=== PATIENT | female | born 1995 | race Caucasian/White ===

== ENCOUNTER → 2019-10-02 09:40 | Outpatient (CLI) | payer OTHER, MEDICAID, SELFPAY ==
--- NOTE | 2019-10-02 | DI.US.S_ITS ---
PROCEDURE: US PELVIC COMPLETE INDICATIONS: BLEEDING X 10 MONTHS TECHNIQUE: Real-time scanning was performed of the pelvic organs, with image documentation. Additional endovaginal scanning was necessary due to incomplete visualization of the adnexal and endometrial structures by transabdominal scanning. COMPARISON: [facility], , PELVIC COMPLETE, 04/26/2017, 12:25. FINDINGS: Transabdominal scanning: Limited scanning through the kidneys shows no hydronephrosis. No pathologic free abdominal or pelvic fluid. Endovaginal scanning: Uterus: Uterus is anteverted and normal in size at 8.4 x 3.4 x 5.1 cm. No uterine mass. The endometrium measures 4 mm in combined thickness. Endometrium appears homogeneous. Ovaries: Within normal limits. Right ovary measures 3.1 x 2.4 x 4.1 cm. Left ovary measures 3.3 x 2.4 x 4.3 cm. IMPRESSION: 1. Endometrium is homogeneous and measures 4 mm. 2. No uterine mass. 3. Ovaries are within normal limit. Dictated by: Mack Flores M.D. on 10/02/2019 at 10:29 Approved by: Mack Flores M.D. on 10/02/2019 at 10:34
== END ==
PROVIDERS: Referring Provider Family Medicine; Visit Provider Family Medicine
DX: N93.9 Abnormal uterine and vaginal bleeding, unspecified (principal)
CPT/HCPCS: 76830; 76856

== ENCOUNTER → 2020-02-27 09:38 | Outpatient (CLI) | payer OTHER, MEDICAID, SELFPAY ==
--- NOTE | 2020-02-27 | DI.US.S_ITS ---
PROCEDURE: US OB <= 14 WEEKS FETUS INDICATIONS: SIZE AND DATES OUTSIDE/PRIOR DATING DATA: Last menstrual period (LMP): January 17, 2020. LMP-based estimated date of delivery (GAL): October 23, 2020 . First dating scan (date and location): February 27, 2020 . Estimated date of delivery (GAL) from first dating scan: October 22, 2020 . TECHNIQUE: Real-time scanning was performed of the fetuses and maternal pelvic organs, with image documentation. Endovaginal scanning: Performed for better visualization of the fetuses and maternal adnexal structures. COMPARISON: None. FINDINGS: General: An intrauterine monochorionic diamniotic twin is present, as evidenced by separate placental sites and/or intervening membrane thickness of greater than 2 mm at this early gestational age. Embryo A: Twin A is noted in the inferior left aspect of the endometrial cavity. The pole and yolk sac are noted. heart rate measured 127 beats per minute. No perigestational hemorrhage. [place]-rump length measured approximately 0.36 cm correlating with approximately 6 weeks and 0 days. Embryo B: Twin B is noted in the superior right margin of the endometrial cavity. A pole and yolk sac are visualized. heart rate measured 113 beats per minute. No perigestational hemorrhage. [place]-rump length measures approximately 0.36 cm correlating with approximately 6 weeks and 0 days gestational age. Measurement variability in dating: +/- 4 weeks by LMP, +/- 7 days by mean sac diameter (use before 6 weeks gestation if crown-rump length unable to be measured), +/- 5 days by crown-rump length (up to 8 weeks 6 days gestation), +/- 7 days by crown-rump length (up to 13 weeks 6 days gestation). Maternal organs: Ovaries are unremarkable with left ovarian corpus luteal cyst measuring approximately 3.0 cm size Limited images through the kidneys demonstrate no hydronephrosis. IMPRESSION: 1. Twin living intrauterine gestations with estimated sonographic gestational age of approximately 6 weeks and 0 days for both twins. 2. Follow-up imaging recommended for routine surveillance. Dictated by: Angel Berg M.D. on 02/27/2020 at 14:48 Approved by: Angel Berg M.D. on 02/27/2020 at 15:00
== END ==
PROVIDERS: PCP Family Medicine; Referring Provider Family Medicine; Visit Provider Family Medicine
DX: Z36.87 Encounter for antenatal screening for uncertain dates (principal); O30.031 Twin pregnancy, monochorionic/diamniotic, first trimester; Z3A.01 Less than 8 weeks gestation of pregnancy
CPT/HCPCS: 76801

== ENCOUNTER → 2020-06-04 09:46 | Outpatient (CLI) | payer OTHER, MEDICAID, SELFPAY ==
--- NOTE | 2020-06-04 | DI.US.S_ITS ---
PROCEDURE: US OB >= 14 WEEKS FETUS INDICATIONS: 20 WEEK ANATOMICAL SURVEY OUTSIDE/PRIOR DATING DATA: Last menstrual period (LMP): 01/17/20. LMP-based estimated date of delivery (GAL): 10/23/20 First dating scan (date and location): 02/27/20 . Estimated date of delivery (GAL) from first dating scan: 10/22/20 . TECHNIQUE: Real-time scanning was performed of the fetuses, with image documentation and biometric measurements. Endovaginal scanning: Not performed COMPARISON: [facility], OB <= 14 WEEKS FETUS, 02/27/2020, 10:05. FINDINGS: General: An intrauterine dichorionic-diamniotic twin is present, as evidenced by separate placentas, differing sexes, or an intervening membrane of greater than 2 mm. Maternal cervical canal: 5.2 cm long. Normal lower limit is 2.5 cm. FETUS A: Fetus is located posterior/inferior, and is in vertex presentation. Largest amniotic fluid pocket: 3.0 cm; normal range is 2-8 cm. Placental position is posterior , without previa. heart rate: 149 beats per minute. biometrics: Biparietal diameter: 4.7 cm, 20 weeks 1 day Head circumference: 17.2 cm, 19 weeks 6 days Abdominal circumference: 14.9 cm, 20 weeks 1 day Femur length: 3.07 cm, 19 weeks 4 days Estimated gestational age from initial scan: 20 weeks 0 days Composite gestational age from present scan: 20 weeks 0 days Estimated weight and percentile: 317 g, 37th percentile Measurement variability for biometric dating: +/- 7 days from 14 weeks to 15 weeks 6 days gestation, +/- 10 days from 16 weeks to 21 weeks 6 days gestation, +/- 2 weeks from 22 weeks to 27 weeks 6 days gestation, +/- 3 weeks for 28 weeks gestation or later. weight reference: 4500 g or EFW >90/95% is considered macrosomia or large for gestational age. EFW <10% is small for gestational age. EFW 5% or less is considered intra-uterine growth restriction. Anatomic survey: Neuro: Ventricles are normal at less than 10 mm. Cisterna magna is normal at 3-11 mm. Cerebellum is normal in size and morphology. Nuchal skin fold: Normal at less than 6 mm between 14 and 21 weeks gestational age. Face: Nose and lips, facial profile are normal. Spine: No evidence for spina bifida. Heart: 4 chambered heart is present, with normal ventricular outflow tracts. Diaphragm: Diaphragm is intact. Stomach: Left-sided stomach is present. Kidneys: No hydronephrosis. Normal ranges are less than 5 mm in 2nd trimester, less than 7 mm in 3rd trimester. Cord: 3 vessel cord has orthotopic insertion. Bladder: Normal in size. Extremities: All 4 extremities are visualized. FETUS B: Fetus is located on right side/fundal, and is in transverse presentation. Largest amniotic fluid pocket: 3.4 cm cm; normal range is 2-8 cm. Placental position is right anterior , without previa. heart rate: 147 beats per minute. biometrics: Biparietal diameter: 4.7 cm, 20 weeks 2 days Head circumference: 17.3 cm, 19 weeks 6 days Abdominal circumference: 15.0 cm, 20 weeks 1 day Femur length: 3.1 cm, 19 weeks 6 days Estimated gestational age from initial scan: 20 weeks 0 days Composite gestational age from present scan: 20 weeks 0 days Estimated weight and percentile: 326 g, 45th percentile Measurement variability for biometric dating: +/- 7 days from 14 weeks to 15 weeks 6 days gestation, +/- 10 days from 16 weeks to 21 weeks 6 days gestation, +/- 2 weeks from 22 weeks to 27 weeks 6 days gestation, +/- 3 weeks for 28 weeks gestation or later. weight reference: 4500 g or EFW >90/95% is considered macrosomia or large for gestational age. EFW <10% is small for gestational age. EFW 5% or less is considered intra-uterine growth restriction. Anatomic survey: Neuro: Ventricles are normal at less than 10 mm. Cisterna magna is normal at 3-11 mm. Cerebellum is normal in size and morphology. Nuchal skin fold: Normal at less than 6 mm between 14 and 21 weeks gestational age. Face: Nose and lips, facial profile are normal. Spine: No evidence for spina bifida. Heart: 4 chambered heart is present, with normal ventricular outflow tracts. Diaphragm: Diaphragm is intact. Stomach: Left-sided stomach is present. Kidneys: No hydronephrosis. Normal ranges are less than 5 mm in 2nd trimester, less than 7 mm in 3rd trimester. Cord: 3 vessel cord has orthotopic insertion. Bladder: Normal in size. Extremities: All 4 extremities are visualized. IMPRESSION: Twin living intrauterine gestation. Fetus A: Vertex presentation. Expected interval growth. Normal anatomic survey. Fetus B: Transverse presentation. Expected interval growth. Normal anatomic survey Dictated by: Estiven Pittman M.D. on 06/04/2020 at 14:13 Approved by: Estiven Pittman M.D. on 06/04/2020 at 14:45
== END ==
PROVIDERS: PCP Family Medicine; Referring Provider Family Medicine; Visit Provider Family Medicine
DX: Z36.89 Encounter for other specified antenatal screening (principal); O30.042 Twin pregnancy, dichorionic/diamniotic, second trimester; Z3A.20 20 weeks gestation of pregnancy
CPT/HCPCS: 76811

== ENCOUNTER 2020-07-30 14:22 | Outpatient (CLI) | payer OTHER, MEDICAID, SELFPAY ==
--- NOTE | 2020-08-03 10:35 | PM.OBTRLD ---
Visit Information Visit Information Date of evaluation: 07/30/20 Primary OB Provider: Belén On-call OB Provider: Krysten Thorne Reason for Evaluation: Yes non-stress test non-stress test reason: decreased movement PFSH Social History Smoking Status: Former smoker Evaluation Evaluation Baseline heart rate: 130 Variability: Average (6-10) monitor accelerations: Present monitor decelerations: Absent Uterine Contraction Intensity: Mild Category of Tracing: Reactive Diagnosis, Plan/Disposition Plan/Disposition Plan: Assessment: 24-year-old 2 para 1 at 28 weeks gestation with dichorionic diamniotic twins Decreased movement Reactive nonstress test x2 Plan: Follow-up with Dr. Melissa as scheduled OB Disposition: home
== END 2020-07-30 15:40 | disposition home or self-care (01) ==
LOC: OB 07-31 07:05
PROVIDERS: PCP Family Medicine; Referring Provider Obstetrics & Gynecology; Visit Provider Obstetrics & Gynecology
DX: O36.8131 Decreased fetal movements, third trimester, fetus 1 (principal); O36.8132 Decreased fetal movements, third trimester, fetus 2; O30.043 Twin pregnancy, dichorionic/diamniotic, third trimester; Z3A.28 28 weeks gestation of pregnancy
CPT/HCPCS: 59025; G0378; G0379

== ENCOUNTER 2020-08-09 18:29 | Outpatient (CLI) | payer OTHER, MEDICAID, SELFPAY ==
[2020-08-09 19:49] LABS: Bacteria Urine None Seen; RBC Urine None Seen (0-5/HPF); WBC Urine None Seen (0-5/HPF)
[2020-08-09 19:51] LABS: Appearance Urine UA CLEAR; Bilirubin Urine UA NEGATIVE (NEGATIVE); Color Urine UA YELLOW; Glucose Urine UA 1+ g/dL (Negative); Ketones Urine UA NEGATIVE (NEGATIVE); Leukocyte Esterase Urine UA NEGATIVE (NEGATIVE); Nitrite Urine UA NEGATIVE (Negative); Occult Blood Urine UA NEGATIVE (Negative); Protein Urine UA NEGATIVE (Negative); Urobilinogen Urine UA 0.2 E.U./dL (0.2)
[2020-08-09 19:59] LABS: Squamous Epithelial Cell Urine 5-10 /HPF (0-5/HPF)
== END 2020-08-09 20:45 | disposition home or self-care (01) ==
LOC: OB 08-10 12:17
PROVIDERS: PCP Family Medicine; Referring Provider Obstetrics & Gynecology; Visit Provider Family Medicine
DX: O47.03 False labor before 37 completed weeks of gestation, third trimester (principal); O30.043 Twin pregnancy, dichorionic/diamniotic, third trimester; Z3A.29 29 weeks gestation of pregnancy
CPT/HCPCS: 59050; 81001; 84112; 87086; G0378; G0379

== ENCOUNTER 2020-08-24 00:34 | Inpatient (IN) | payer OTHER, MEDICAID, SELFPAY ==
[2020-08-24 01:30] LABS: Add Manual Diff / Slide Review NO; Basophils Absolute Auto 100 /uL (0-100); Basophils Percent Auto 0.8 % (0-2); Eosinophils Absolute Auto 100 /uL (0-450); Hematocrit 33.3 % (36-46); Hemoglobin 11.7 g/dL (12.0-16.0); Lymphocytes Absolute Auto 2800 /uL (1100-4500); Lymphocytes Percent Auto 27.1 % (25-40); Mean Corpuscular HGB Conc 34.9 % (30-36); Mean Corpuscular Hemoglobin 30.7 PG (26-34); Mean Corpuscular Volume 87.9 fL (80-100); Monocytes Absolute Auto 700 /uL (0-900); Neutrophils Absolute Auto 6700 /uL (1500-7000); Neutrophils Percent Auto 64.1 % (50-75); Platelet Count 202 X10^3/uL (150-400); Red Blood Cell Count 3.79 X10^6/uL (4.0-5.2); Red Cell Distribution Width 12.9 % (11.6-14.8); White Blood Cell Count 10.4 X10^3/uL (4.5-11.0)
[2020-08-24] MEDS: MAGNESIUM SULFATE 4 GM/100 ML PIGGYBACK IV (01:30)
[2020-08-24] MEDS: LACTATED RINGERS 1,000 ML 100 ML IV (01:30)
--- NOTE | 2020-08-24 01:34 | P.HP_ITS ---
History of Present Illness History of Present Illness Date Patient Seen: 08/24/20 Time Patient Seen: 01:52 Chief complaint: Observation Narrative: Patient is a 24-year-old 2 para 1001 at 31-,4/7 weeks gestation with dichorionic/diamniotic twins who had a large gush of bright red blood at Midnight. They brought a pad and her underwear and looks like approx imately 100-150 cc of blood. She continued to bleed once she got here but then stopped abruptly. On sterile speculum exam there was a large clot measuring about 10 cm x 4 cm in the vagina. This was removed. Meds Home Medications and Allergies Home Medications Medication Instructions Recorded Confirmed Type No Known Home Medications 07/02/20 07/30/20 History Allergies Allergy/AdvReac Type Severity Reaction Status Date / Time NKA - NO KNOWN ALLERGIES Allergy Unknown Uncoded 07/30/20 13:56 Objective Labs Result Diagrams: 08/24/20 01:10 Assessment & Plan Assessment and plan (1) Previous section complicating : Status: Acute
[2020-08-24 01:37] LABS: COVID19 -Nasal RAPID Negative (Negative)
--- NOTE | 2020-08-24 01:55 | PM.OBHP.1 ---
OB HPI Date/Time Date of admission: 08/24/20 Date Patient Seen: 08/24/20 Time Patient Seen: 01:56 History of Present Condition Chief complaint: Observation : 2 Para: 1 Estimated Date of Delivery: 10/22/20 Estimated Gestational Age (weeks): 31+4 Narrative: Alicia Bowling is a 24 year old female 2 para 1 at 31-,4/7 weeks gestation with dichorionic diamniotic twins who presented with bright red bleeding. She woke up to a gush of blood. They brought in a pad and some underwear with 150 cc of blood. Upon sterile speculum exam she had a large clot measuring 10 cm x 4 cm that was removed from the vagina. She does not have active bleeding now. History of Present care: good care Dating criteria: LMP confirmed by 1st trimester US Ultrasounds: normal 1st trimester US and normal mid trimester US (No previa, Posterior and right anterior placentas) Medical complications: none Preadmission Labs Blood type: B (-) negative -: Antibody screen: negative, GBS status: unknown (Sent stat), HBsAG: negative, HIV: negative and RPR/VDLR: negative -: Chlamydia screen: not detected and Gonorrhea screen: not detected -: Rubella: not immune and Varicella: immune HCT: 33.3 HCAB: negative PAP: Normal Sequential screen: Normal, done at [facility] Urine: Negative 1 hr GTT: 113 Prior (ies) History: C/S due to breech Evaluation Evaluation Baseline heart rate: 145 Variability: Moderate (11-25) monitor accelerations: Present monitor decelerations: Absent Contraction Frequency (minutes): 4 Uterine Contraction Intensity: Mild Status: Category l Cervical dilation (cm): 0 Cervical effacement (%): 25 station: -2 Laboratory results: Laboratory Tests 08/24/20 08/24/20 08/24/20 01:10 01:10 01:10 WBC 10.4 RBC 3.79 L Hgb 11.7 L Hct 33.3 L MCV 87.9 MCH 30.7 MCHC 34.9 RDW 12.9 Plt Count 202 Neut % (Auto) 64.1 Lymph % (Auto) 27.1 [place] % (Auto) 7.0 Eos % (Auto) 1.0 L Baso % (Auto) 0.8 Neut # (Auto) 6700 Lymph # (Auto) 2800 [place] # (Auto) 700 Eos # (Auto) 100 Baso # (Auto) 100 SARS-CoV-2 (PCR) Negative Blood Type B Negative Antibody Screen Negative [facility] Surgical History (Updated 08/24/20 @ 02:04 by Krysten Thorne MD) Previous section complicating Social History Smoking Status: Former smoker Meds Home Medications and Allergies Home Medications Medication Instructions Recorded Confirmed Type No Known Home Medications 07/02/20 07/30/20 History Allergies Allergy/AdvReac Type Severity Reaction Status Date / Time NKA - NO KNOWN ALLERGIES Allergy Unknown Uncoded 07/30/20 13:56 Exam Vital Signs (past 8 hours): Generally: Patient lying in bed, in mild distress due to situation Lungs: Clear to auscultation bilaterally Cardiovascular: Regular rate and rhythm Fundal height: 35 cm Bedside ultrasound: Vertex vertex presentation Extremities: No edema Sterile speculum exam: A large clot removed from the vagina. Cervix appears closed. Vaginal exam: Closed cervix. Approximately 25% effaced Objective Labs Result Diagrams: 08/24/20 01:10 Labs: Laboratory Results - last 24 hr 08/24/20 08/24/20 08/24/20 01:10 01:10 01:10 WBC 10.4 RBC 3.79 L Hgb 11.7 L Hct 33.3 L MCV 87.9 MCH 30.7 MCHC 34.9 RDW 12.9 Plt Count 202 Neut % (Auto) 64.1 Lymph % (Auto) 27.1 [place] % (Auto) 7.0 Eos % (Auto) 1.0 L Baso % (Auto) 0.8 Neut # (Auto) 6700 Lymph # (Auto) 2800 [place] # (Auto) 700 Eos # (Auto) 100 Baso # (Auto) 100 SARS-CoV-2 (PCR) Negative Blood Type B Negative Antibody Screen Negative Assessment and Plan Assessment and Plan Assessment and Plan narrative: Assessment: 24-year-old 2 para 1001 at 31-,4/7 weeks gestation with dichorionic, diamniotic twins with episode of large amount of bright red bleeding Mild contractions on the monitor Cervix closed Plan: Betamethasone 12 mg IM Magnesium sulfate 4 g bolus, 2 g maintenance dose Penicillin 5 million units IV RhoGAM Group B strep obtained and sent stat Transfer to the [facility]. Accepting physician Dr. Jovita lPummer Time Spent with Patient Total time spent with greater than 50% in coordination of care (as documented) at patient's floor/unit and/or counseling patient:: Greater than 35 minutes
[2020-08-24] MEDS: PENICILLIN G POTASSIUM 5,000,000 UNIT in DEXTROSE 5% IN WATER 250 ML IV (02:00)
[2020-08-24] MEDS: BETAMETHASONE 30 MG/5 ML MDV 12 MG IM (02:00)
[2020-08-24] MEDS: MAGNESIUM SULFATE 20 GM/500 ML IV.SOLN IV (02:30)
[2020-08-24 02:38] LABS: Aspartate Aminotransferase 22 IU/L (14-36); BUN Creatinine Ratio 11.1 (6-22); Blood Urea Nitrogen 5 mg/dL (7-17); Carbon Dioxide 25 mmol/L (22-32); Chloride 104 mmol/L (98-107); Estimated Glomerular Filt Rate > 60.0 mL/min (>60); HEMOLYSIS < 15 (0-50); Magnesium 4.3 mg/dL (1.6-2.3); Potassium 3.6 mmol/L (3.4-5.1); Sodium 131 mmol/L (137-145); Uric Acid 3.9 mg/dL (2.5-6.2)
[2020-08-24 03:06] LABS: Strep Grp B PCR NEG for Grp B Strep
[2020-08-24 05:30] VITALS: BP 117/73
[2020-08-24 08:25] LABS: Add Manual Diff / Slide Review YES
== END 2020-08-24 03:55 | disposition short-term general hospital (02) | DRG 566 ==
PROVIDERS: Admitting Provider Obstetrics & Gynecology; PCP Family Medicine; Referring Provider Obstetrics & Gynecology; Visit Provider Obstetrics & Gynecology
DX: O46.93 Antepartum hemorrhage, unspecified, third trimester (principal); Z3A.31 31 weeks gestation of pregnancy; Z20.822 Contact with and (suspected) exposure to COVID-19
CPT/HCPCS: 36415; 59050; 76815; 80051; 83735; 84450; 84550; 85007; 85025; 86850; 86900; 86901; 87081; 87635; 87653; 96360; 96372; C9803; G0379; J0702; J2540; J3475

== ENCOUNTER 2021-09-16 19:58 | Emergency (ER) | payer OTHER, MEDICAID, SELFPAY ==
[2021-09-16 20:06] VITALS: BP 139/75; PULSE 90; RESP 16; TEMP 37.1; O2SAT 100; BMI 16.1
--- NOTE | 2021-09-16 20:11 | DI.RAD.S_ITS ---
PROCEDURE: XR HAND LT 2V INDICATIONS: dog bite TECHNIQUE: 3 views of the hand(s) acquired. COMPARISON: None. FINDINGS: Bones: No fractures or dislocations. Carpal bones are normally aligned. No suspicious bony lesions. Soft tissues: No radiopaque foreign bodies. No suspicious soft tissue calcifications. IMPRESSION: 1. No fracture or radiopaque foreign bodies. Dictated by: Chucho Wang M.D. on 09/16/2021 at 20:57 Approved by: Chucho Wang M.D. on 09/16/2021 at 20:57
--- NOTE | 2021-09-16 20:11 | DI.RAD.S_ITS ---
PROCEDURE: XR WRIST LT 2V INDICATIONS: dog bite TECHNIQUE: 4 views of the wrist were acquired. COMPARISON: [facility], CR, XR HAND LT 2V, 09/16/2021, 20:35. FINDINGS: Bones: No fractures or dislocations. No suspicious bony lesions. Scaphoid view: Scaphoid appears intact. Soft tissues: No radiopaque foreign bodies. No suspicious soft tissue calcifications. IMPRESSION: 1. No fractures or radiopaque foreign bodies. Dictated by: Chucho Wang M.D. on 09/16/2021 at 21:16 Approved by: Chucho Wang M.D. on 09/16/2021 at 21:17
--- NOTE | 2021-09-16 20:21 | PC.NURSE ---
swelling and hematoma notes to right posterior calf, hematoma noted to dorsal aspect of right hand, pt a/o left wrist pain with decreased ROM,
--- NOTE | 2021-09-16 22:46 | ED.GENADULT ---
HPI - General Adult General Chief complaint: Extremity Injury, Upper Stated complaint: dog bite to back of rt leg, lt arm pain Time Seen by Provider: 09/16/21 22:40 Source: patient Mode of arrival: Ambulatory History of Present Illness HPI narrative: 25-year-old otherwise healthy woman presents today after breaking up a dog fight and sustaining some injuries to both hands in her right calf. She states that she was outside with her dog in her twins when another dog came into the area. The 2 dogs were fighting and heading toward the children she broke up the fight and has a tooth juanito abrasions to the dorsum of her right hand, tenderness along the left hand and wrist and abrasions and ecchymoses from a bite to the right calf. Related Data Home Medications Medication Instructions Recorded Confirmed No Known Home Medications 07/02/20 08/24/20 Allergies Allergy/AdvReac Type Severity Reaction Status Date / Time NKA - NO KNOWN ALLERGIES Allergy Unknown Uncoded 10/22/20 10:24 Review of Systems Review of Systems Narrative: Pertinent positive and negative findings as per HPI Remainder of review of systems is otherwise unremarkable for Constitutional: Fevers, chills, weakness ENT: No sore throat, neck pain, CV: Chest pain, palpitations, Respiratory: Cough, wheeze, dyspnea GI: Nausea, vomiting, diarrhea, Patient History Surgical History Previous section complicating Social History Smoking Status: Former smoker Smoking Status: Former smoker Exam Initial Vital Signs Initial Vital Signs: Vital Signs Temperature 98.7 F 09/16/21 20:06 Pulse Rate 90 09/16/21 20:06 Respiratory Rate 16 09/16/21 20:06 Blood Pressure 139/75 09/16/21 20:06 Pulse Oximetry 100 09/16/21 20:06 General: Alert appropriate in no acute distress Respiratory: Able to speak in full sentences, no obvious respiratory distress Skin: No obvious rashes, warm and dry Neurologic: Grossly intact no obvious asymmetries or abnormalities Psych: appropriate insight and affect, cooperative Extremity: Minor abrasions with ecchymosis to the dorsum of the right hand. No abrasions but contusion to the lateral aspect of the left hand. Both hands and fingers have full range of motion and are neurovascularly intact. She has a bite juanito to the right calf with bruising and abrasions from the upper and lower canines but no significant puncture component. Course Orders Ordered: ED Orders 09/16/21 20:11 XR hand LT 2V Stat XR wrist LT 2V Stat Vital Signs Vital signs: Vital Signs - 8 hr 09/16/21 20:06 Temperature 98.7 F Pulse Rate 90 Respiratory Rate 16 Blood Pressure 139/75 Pulse Oximetry 100 Medical Decision Making Imaging Data X-ray wrist and hand: Radiologist's Impression: FINDINGS:? ? Bones:? No fractures or dislocations.? No suspicious bony lesions.? ? Scaphoid view:? Scaphoid appears intact. ? Soft tissues:? No radiopaque foreign bodies.? No suspicious soft tissue calcifications.? ? IMPRESSION:? ? 1. No fractures or radiopaque foreign bodies. ? ? Dictated by: Chucho Wang M.D. on 09/16/2021 at 21:16 ? FINDINGS:? ? Bones:? No fractures or dislocations.? Carpal bones are normally aligned.? No suspicious bony lesions.? ? Soft tissues:? No radiopaque foreign bodies.? No suspicious soft tissue calcifications.? ? ? IMPRESSION:? ? 1. No fracture or radiopaque foreign bodies. ? ? Dictated by: Chucho Wang M.D. on 09/16/2021 at 20:57 ? ?? MDM Narrative Medical decision making narrative: You are going to have some bruises over both hands and your calf. Fortunately, there only superficial scratches and no deeper injuries that would require oral antibiotics. Please do keep the superficial scratches covered with antibiotic ointment for the 1st couple of days until things begin to heal. Do expect quite a bit more bruising. The x-rays were reassuring with no underlying broken bones. If you have worsening symptoms, it looks like any of the scratches are becoming infected or you have new findings, please feel free to return to the ER Discharge Plan Departure Patient Disposition: Home Clinical Impression: Dog bite, Contusion of hand Instructions: DI for Animal Bites Activity Restrictions/Additional Instructions: Thank you for waiting this evening. It is a bit scary to get caught in the middle of dogs. I am glad however that it was you that I was talking with tonight rather than your kids. You are going to have some bruises over both hands and your calf. Fortunately, there only superficial scratches and no deeper injuries that would require oral antibiotics. Please do keep the superficial scratches covered with antibiotic ointment for the 1st couple of days until things begin to heal. Do expect quite a bit more bruising. The x-rays were reassuring with no underlying broken bones. If you have worsening symptoms, it looks like any of the scratches are becoming infected or you have new findings, please feel free to return to the ER Prescriptions: No Action No Known Home Medications 0RF Referrals: Chace Melissa MD [Primary Care Provider] -
== END 2021-09-16 22:48 | disposition home or self-care (01) ==
PROVIDERS: Emergency Provider Emergency Medicine; PCP Family Medicine
DX: S60.222A Contusion of left hand, initial encounter (principal); S60.221A Contusion of right hand, initial encounter; S80.11XA Contusion of right lower leg, initial encounter; Z87.891 Personal history of nicotine dependence; W54.0XXA Bitten by dog, initial encounter; Y93.89 Activity, other specified
CPT/HCPCS: 73100; 73120; 99281; 99283

== ENCOUNTER → 2022-02-16 12:26 | Outpatient (CLI) | payer OTHER, MEDICAID, SELFPAY ==
[2022-02-16 13:03] LABS: Specimen Label NATERA KIT
[2022-02-16 13:08] LABS: Add Manual Diff / Slide Review NO; Basophils Absolute Auto 100 /uL (0-100); Eosinophils Absolute Auto 0 /uL (0-450); Eosinophils Percent Auto 0.6 % (2-4); Hematocrit 37.5 % (36-46); Hemoglobin 12.9 g/dL (12.0-16.0); Lymphocytes Absolute Auto 1900 /uL (1100-4500); Lymphocytes Percent Auto 27.2 % (25-40); Mean Corpuscular HGB Conc 34.4 % (30-36); Mean Corpuscular Hemoglobin 30.3 PG (26-34); Mean Corpuscular Volume 88.2 fL (80-100); Monocytes Absolute Auto 400 /uL (0-900); Monocytes Percent Auto 5.2 % (3-14); Neutrophils Absolute Auto 4600 /uL (1500-7000); Platelet Count 219 X10^3/uL (150-400); Red Blood Cell Count 4.26 X10^6/uL (4.0-5.2); Red Cell Distribution Width 12.5 % (11.6-14.8); White Blood Cell Count 6.9 X10^3/uL (4.5-11.0)
[2022-02-16 13:16] LABS: Appearance Urine UA CLEAR; Bilirubin Urine UA NEGATIVE (NEGATIVE); Color Urine UA YELLOW; Glucose Urine UA NEGATIVE (Negative); Ketones Urine UA NEGATIVE (NEGATIVE); Leukocyte Esterase Urine UA NEGATIVE (NEGATIVE); Nitrite Urine UA NEGATIVE (Negative); Occult Blood Urine UA NEGATIVE (Negative); Protein Urine UA NEGATIVE (Negative); Specific Gravity Urine UA <=1.005 (1.000-1.035); Urobilinogen Urine UA 0.2 E.U./dL (0.2)
[2022-02-16 13:21] LABS: pH Urine UA 6.5 (4.5-8.0)
[2022-02-17 06:10] LABS: Varicella IgG Antibody 964 index (Immune >165)
[2022-02-17 09:56] LABS: RPR Screen Non Reactive (Non Reactive)
[2022-02-19 15:51] LABS: Hepatitis B Surface Antigen NEGATIVE s/c (NEGATIVE)
[2022-02-19 16:19] LABS: HIV 1 & 2 Ab/Ag 4th Gen Combo NEGATIVE (NEGATIVE); Hep C Virus Ab w/Reflex Quant NEGATIVE s/c (NEGATIVE)
== END ==
PROVIDERS: PCP Family Medicine; Referring Provider Obstetrics & Gynecology; Visit Provider Obstetrics & Gynecology
DX: Z34.81 Encounter for supervision of other normal pregnancy, first trimester (principal)
CPT/HCPCS: 80055; 81003; 86787; 86803; 86850; 86900; 86901; 87086; 87389

== ENCOUNTER → 2022-03-18 15:21 | Outpatient (CLI) | payer OTHER, MEDICAID, SELFPAY ==
[2022-03-18 21:20] LABS: Urine N gonorrhoeae NOT DETECTED
[2022-03-18 21:22] LABS: Urine Chlamydia NOT DETECTED
== END ==
PROVIDERS: PCP Family Medicine; Visit Provider Obstetrics & Gynecology
DX: Z34.81 Encounter for supervision of other normal pregnancy, first trimester (principal); Z3A.13 13 weeks gestation of pregnancy
CPT/HCPCS: 87491; 87591

== ENCOUNTER → 2022-04-16 14:49 | Outpatient (CLI) | payer OTHER, MEDICAID, SELFPAY ==
[2022-04-20 20:17] LABS: Gest Age on Col Date 17.9 weeks (.); Insulin Dep Diabetes No (.); OSBR Risk 1IN 9862 (.); Results Report (.); Test Results *Screen Negative* (.)
== END ==
PROVIDERS: PCP Family Medicine; Referring Provider Obstetrics & Gynecology; Visit Provider Obstetrics & Gynecology
DX: Z34.82 Encounter for supervision of other normal pregnancy, second trimester (principal); Z3A.17 17 weeks gestation of pregnancy
CPT/HCPCS: 36415; 82105

== ENCOUNTER → 2022-05-03 10:31 | Outpatient (CLI) | payer OTHER, MEDICAID, SELFPAY ==
--- NOTE | 2022-05-03 10:32 | DI.US.S_ITS ---
PROCEDURE: US OB >= 14 WEEKS FETUS INDICATIONS: ANATOMY OUTSIDE/PRIOR DATING DATA: Last menstrual period (LMP): 12/07/2021 LMP-based estimated date of delivery (GAL): 09/13/2022 First dating scan (date and location): 02/16/2022. Estimated date of delivery (GAL) from first dating scan: 09/20/2022 The calculations are made using the study derived GAL of 09/20/2022. TECHNIQUE: Real-time scanning was performed of the fetus, with image documentation and biometric measurements. Endovaginal scanning: Not indicated COMPARISON: [facility], , OB >= 14 WEEKS FETUS, 07/02/2020, 10:42. FINDINGS: General: A single living intrauterine gestation is present. Presentation: Variable. Placenta: Placental position is right anterior, without previa. Amniotic fluid index: 10.8 cm, normal range is 5-24 cm. Single deepest vertical pocket is 3.9 cm. heart rate: 158 beats per minute. Maternal cervical canal: 4.4 cm long. Normal lower limit is 2.5 cm. biometrics: Biparietal diameter: 4.6 cm, 19 weeks, 6 days. Head circumference: 16.6 cm, 19 weeks, 2 days. Abdominal circumference: 14.3 cm, 19 weeks, 5 days. Femur length: 3.2 cm, 19 weeks, 6 days. Clinically estimated gestational age: 20 weeks, 0 day. Composite gestational age from present scan: 19 weeks, 5 days. Estimated weight and percentile: 308 g, 29%. Anatomic survey: Neuro: Ventricles are non-dilated at less than 10 mm. Cisterna magna is normal at 3-11 mm. Cerebellum is normal in size and morphology. Nuchal skin fold: Normal at less than 6 mm between 14-21 weeks gestational age. There is suggestion of nuchal cord wrapped around the neck once. Face: Nose and lips, facial profile are normal. Spine: No evidence for spina bifida. Heart: 4-chambered heart is present, with normal ventricular outflow tracts. Diaphragm: Diaphragm is intact. Stomach: Left-sided stomach is present. Kidneys: No hydronephrosis. Normal is less than 5 mm in 2nd trimester, less than 7 mm in 3rd trimester. Cord: 3-vessel cord has orthotopic insertion. Bladder: Normal in size. Extremities: All 4 extremities identified. IMPRESSION: 1. Single live intrauterine gestation with fetus in variable presentation. heart rate is 158 beats per minute. Normal amount of amniotic fluid. Normal growth. Estimated weight is at 29%. 2. Suggestion of nuchal cord with cord wrapped around neck once. Follow-up study is recommended. 3. Rest of the anatomic survey is within normal limits. We strive to produce accurate, complete, and clear reports of imaging services. To assist us in improving patient care, this report was composed using standard report templates and voice recognition software. Therefore, it may contain abnormal punctuation, insertions and/or omissions. Occasional wrong-word or sound-alike substitutions may occur. Though we review the report and make efforts to correct it, we do recommend that the report be read carefully in proper context to recognize any text inaccuracies. Dictated by: Prabhu Ayoub M.D. on 05/03/2022 at 15:18 Approved by: Prabhu Ayoub M.D. on 05/03/2022 at 15:21
== END ==
PROVIDERS: PCP Family Medicine; Referring Provider Obstetrics & Gynecology; Visit Provider Obstetrics & Gynecology
DX: Z34.92 Encounter for supervision of normal pregnancy, unspecified, second trimester (principal); Z3A.19 19 weeks gestation of pregnancy
CPT/HCPCS: 76811

== ENCOUNTER → 2022-06-17 09:45 | Outpatient (CLI) | payer OTHER, MEDICAID, SELFPAY ==
[2022-06-17 11:16] LABS: Hematocrit 34.1 % (36-46); Hemoglobin 12.1 g/dL (12.0-16.0)
[2022-06-17 11:44] LABS: GTT (PREG) 1 Hour PP 50gm Dose 93 mg/dL (76-139)
== END ==
PROVIDERS: PCP Family Medicine; Referring Provider Obstetrics & Gynecology; Visit Provider Obstetrics & Gynecology
DX: O26.899 Other specified pregnancy related conditions, unspecified trimester (principal); Z3A.26 26 weeks gestation of pregnancy; Z67.91 Unspecified blood type, Rh negative; R39.9 Unspecified symptoms and signs involving the genitourinary system
CPT/HCPCS: 36415; 82950; 85014; 85018; 86850; 87086

== ENCOUNTER → 2022-07-01 16:35 | Outpatient (CLI) | payer OTHER, MEDICAID, SELFPAY ==
[2022-07-01 18:00] LABS: Appearance Urine UA CLEAR; Bilirubin Urine UA NEGATIVE (NEGATIVE); Color Urine UA YELLOW; Glucose Urine UA NEGATIVE (Negative); Ketones Urine UA NEGATIVE (NEGATIVE); Leukocyte Esterase Urine UA NEGATIVE (NEGATIVE); Nitrite Urine UA NEGATIVE (Negative); Occult Blood Urine UA NEGATIVE (Negative); Protein Urine UA NEGATIVE (Negative); Urobilinogen Urine UA 0.2 E.U./dL (0.2)
[2022-07-01 18:01] LABS: pH Urine UA 6.5 (4.5-8.0)
== END ==
PROVIDERS: PCP Family Medicine; Referring Provider Obstetrics & Gynecology; Visit Provider Obstetrics & Gynecology
DX: R39.9 Unspecified symptoms and signs involving the genitourinary system (principal); N39.0 Urinary tract infection, site not specified
CPT/HCPCS: 81003; 87086

== ENCOUNTER 2022-07-08 13:11 | Outpatient (CLI) | payer OTHER, MEDICAID, SELFPAY | END 2022-07-08 14:18 | disposition home or self-care (01) | LOC: LABOR 14:12 → OB 07-12 10:35 | PROVIDERS: PCP Family Medicine; Referring Provider Obstetrics & Gynecology; Visit Provider Obstetrics & Gynecology | DX: O60.03 Preterm labor without delivery, third trimester (principal); Z3A.29 29 weeks gestation of pregnancy | CPT/HCPCS: 59025; G0378; G0379 ==

== ENCOUNTER → 2022-08-02 14:23 | Outpatient (CLI) | payer OTHER, MEDICAID, SELFPAY ==
[2022-08-02 15:03] LABS: Cholesterol 266 mg/dL (140-199); HDL Cholesterol 93 mg/dL (40-60); LDL Cholesterol Calculated 143 mg/dL (<100); Triglycerides 150 mg/dL (35-150)
[2022-08-02 16:56] LABS: Alanine Aminotransferase 19 IU/L (<35); Albumin 3.9 g/dL (3.5-5.0); Albumin Globulin Ratio 1.1 (1.0-2.8); Alkaline Phosphatase 112 U/L (38-126); Aspartate Aminotransferase 29 IU/L (14-36); BUN Creatinine Ratio 14.3 (6-22); Bilirubin Total 0.2 mg/dL (0.2-1.3); Blood Urea Nitrogen 7 mg/dL (7-17); Calcium 9.2 mg/dL (8.4-10.2); Carbon Dioxide 24 mmol/L (22-32); Chloride 105 mmol/L (98-107); Estimated Glomerular Filt Rate > 60 mL/min (>60); Globulin 3.4 g/dL (1.7-4.1); Glucose 76 mg/dL (70-100); HEMOLYSIS < 15 (0-50); Sodium 134 mmol/L (137-145); Total Protein 7.3 g/dL (6.3-8.2)
[2022-08-04 11:38] LABS: Bile Acids <1.0 umol/L (0.0-10.0)
== END ==
PROVIDERS: PCP Family Medicine; Referring Provider Physician Assistant Medical; Visit Provider Physician Assistant Medical
DX: L29.9 Pruritus, unspecified (principal); O99.719 Diseases of the skin and subcutaneous tissue complicating pregnancy, unspecified trimester
CPT/HCPCS: 36415; 80053; 80061; 82239

== ENCOUNTER 2022-08-24 09:33 | Outpatient (CLI) | payer OTHER, MEDICAID, SELFPAY | END 2022-08-24 10:40 | disposition home or self-care (01) | LOC: LABOR 09:35 → OB 08-30 08:18 | PROVIDERS: PCP Family Medicine; Referring Provider Obstetrics & Gynecology; Visit Provider Obstetrics & Gynecology | DX: O36.8130 Decreased fetal movements, third trimester, not applicable or unspecified (principal); O47.03 False labor before 37 completed weeks of gestation, third trimester; Z3A.36 36 weeks gestation of pregnancy; Z34.83 Encounter for supervision of other normal pregnancy, third trimester | CPT/HCPCS: 59025; 87653; G0378; G0379 ==

== ENCOUNTER → 2022-08-24 10:17 | Outpatient (CLI) | payer OTHER, MEDICAID, SELFPAY ==
[2022-08-25 10:59] LABS: Strep Grp B PCR NEG for Grp B Strep
== END ==
PROVIDERS: PCP Family Medicine; Visit Provider Obstetrics & Gynecology
DX: Z34.83 Encounter for supervision of other normal pregnancy, third trimester (principal); Z3A.36 36 weeks gestation of pregnancy
CPT/HCPCS: 87653

== ENCOUNTER 2022-08-25 10:26 | Outpatient (CLI) | payer OTHER, MEDICAID, SELFPAY | END 2022-08-25 11:23 | disposition home or self-care (01) | LOC: LABOR 10:55 → OB 08-30 08:19 | PROVIDERS: PCP Family Medicine; Referring Provider Obstetrics & Gynecology; Visit Provider Obstetrics & Gynecology | DX: Z03.71 Encounter for suspected problem with amniotic cavity and membrane ruled out (principal); O36.5930 Maternal care for other known or suspected poor fetal growth, third trimester, not applicable or unspecified; Z3A.36 36 weeks gestation of pregnancy | CPT/HCPCS: 59025; 84112; G0378; G0379 ==

== ENCOUNTER 2022-08-27 07:30 | Outpatient (CLI) | payer OTHER, MEDICAID, SELFPAY | END 2022-08-27 08:06 | disposition home or self-care (01) | LOC: LABOR 08:18 → OB 09-02 13:06 | PROVIDERS: PCP Family Medicine; Referring Provider Obstetrics & Gynecology; Visit Provider Obstetrics & Gynecology | DX: O36.5930 Maternal care for other known or suspected poor fetal growth, third trimester, not applicable or unspecified (principal); Z3A.36 36 weeks gestation of pregnancy | CPT/HCPCS: 59025; G0378; G0379 ==

== ENCOUNTER 2022-09-03 05:40 | Inpatient (IN) | payer OTHER, MEDICAID, SELFPAY ==
[2022-09-03 06:24] LABS: Add Manual Diff / Slide Review NO; Basophils Absolute Auto 100 /uL (0-100); Basophils Percent Auto 1.2 % (0-2); Eosinophils Absolute Auto 100 /uL (0-450); Hematocrit 35.8 % (36-46); Hemoglobin 12.7 g/dL (12.0-16.0); Lymphocytes Absolute Auto 2200 /uL (1100-4500); Lymphocytes Percent Auto 30.6 % (25-40); Mean Corpuscular HGB Conc 35.3 % (30-36); Mean Corpuscular Hemoglobin 31.7 PG (26-34); Mean Corpuscular Volume 89.7 fL (80-100); Monocytes Absolute Auto 500 /uL (0-900); Monocytes Percent Auto 7.4 % (3-14); Neutrophils Absolute Auto 4300 /uL (1500-7000); Neutrophils Percent Auto 59.8 % (50-75); Platelet Count 190 X10^3/uL (150-400); White Blood Cell Count 7.2 X10^3/uL (4.5-11.0)
--- NOTE | 2022-09-03 07:26 | PM.OBHP.1 ---
OB HPI Date/Time Date of admission: 09/03/22 Date Patient Seen: 09/03/22 Time Patient Seen: 07:27 History of Present Condition Chief complaint: INPT : 3 Para: 2 Estimated Date of Delivery: 09/20/22 Estimated Gestational Age (weeks): 37 Narrative: Alicia Carreon is a 26 year old female admitted for repeat Indications Operative indications ( section): previous uterine surgery History of Present care: good care Dating criteria: based on 1st trimester US only Ultrasounds: normal mid trimester US Obstetrical complications: none Medical complications: none Preadmission Labs Blood type: B (-) negative -: Antibody screen: negative, GBS status: negative, HBsAG: negative, HIV: negative and RPR/VDLR: negative -: Chlamydia screen: not detected and Gonorrhea screen: not detected -: Rubella: immune and Varicella: immune HCAB: negative Cell-free DNA: Normal female Fasting blood glucose: 93 Prior (ies) History: 08/19/2014 39 week gestation section female 08/27/20 32 week repeat for abruption twin boys Evaluation Evaluation Baseline heart rate: 140 Variability: Moderate (11-25) monitor accelerations: Present Monitor Decelerations: Absent Contraction Frequency (minutes): 5 Uterine Contraction Intensity: Mild Category of Tracing: Reactive Status: Category l PFSH Medical History (Updated 08/31/22 @ 14:49 by Lena Lara MD) 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 Kidney stones Recurrent UTI Surgical History (Updated 02/03/22 @ 09:14 by Thelma Peterson RN) Previous section complicating [place] teeth extracted Family History (Updated 02/03/22 @ 09:21 by Thelma Peterson RN) Mother Hypertension Grandfather Diabetes mellitus Prostate cancer Hypertension Thyroid disease Grandmother Skin cancer, basal cell Lung cancer Father Cardiac arrhythmia Hypothyroid Melanoma Pacemaker Grandfather Hypertension Heart failure Grandmother Healthy adult Social History marital status: number of children: 3 household members: spouse and children lives independently: Yes housing: house pets and animals: Yes (1 large dog, several rabbits) education level: college (Associate's degree) occupational status: previously employed current occupational exposures/hazards: No special sandra needs: No travel history: over 6 months ago seatbelt use: always water heater temp set < 120 deg: No (Will have adjust) working smoke detector in home: Yes fire extinguisher in home: Yes carbon monox detector in home: Yes firearms in home: Yes firearms unloaded and locked: Yes do you feel safe at home: Yes Smoking Status: Never smoker Tobacco: How many years used: 5 second hand exposure: No alcohol intake: former (occasional glass of wine when not prengnant) substance use type: does not use during the past year weight has: remained stable well-balanced diet: daily or most days daily servings fruits/ve or more times/day caffeine: No (coffee ) Type(s) of exercise: walking frequency: daily Meds Home Medications and Allergies Home Medications Medication Instructions Recorded Confirmed Type prenat.vits,miki,sog-rsle-akdrt 1 tab PO DAILY 02/03/22 08/31/22 History valacyclovir 500 mg tablet 500 mg PO DAILY 02/03/22 08/31/22 History (Valtrex) Allergies Allergy/AdvReac Type Severity Reaction Status Date / Time amoxicillin Allergy Mild ITCHING Verified 08/31/22 14:00 eggplant Allergy Mild Rash Verified 08/31/22 14:00 pepper (genus Capsicum) Allergy Mild Rash Verified 08/31/22 14:00 potato Allergy Mild Rash Verified 08/31/22 14:00 tomato Allergy Mild ITCHING Verified 08/31/22 14:00 Nightshade Allergy Mild Rash Uncoded 08/31/22 14:00 Review of Systems Review of Systems Narrative: Patient is feeling some contractions. Good movement. No leakage of fluid. No headaches, scotomata, epigastric pain. OB Exam Vital signs Blood Pressure: 115/73 Pulse Rate: 74 Narrative Exam Narrative: HEENT exam within normal limits. Lungs are clear to auscultation percussion. Heart is regular rate and rhythm no S3-S4 murmurs. Abdomen is gravid. Fetus is vertex. Extremities without edema and nontender. Objective Labs 09/03/22 06:10 Labs: Laboratory Results - last 24 hr 09/03/22 06:10 WBC 7.2 RBC 4.00 Hgb 12.7 Hct 35.8 L MCV 89.7 MCH 31.7 MCHC 35.3 RDW 13.0 Plt Count 190 Neut % (Auto) 59.8 Lymph % (Auto) 30.6 [place] % (Auto) 7.4 Eos % (Auto) 1.0 L Baso % (Auto) 1.2 Neut # (Auto) 4300 Lymph # (Auto) 2200 [place] # (Auto) 500 Eos # (Auto) 100 Baso # (Auto) 100 Assessment and Plan Assessment and Plan Assessment and Plan narrative: 37 weeks 4 day gestation with 2 prior C-sections 1 for abruption at 32 weeks who is here for repeat section
[2022-09-03 07:35] VITALS: BP 115/73; PULSE 74
[2022-09-03] MEDS: CEFAZOLIN 2 GM/100 ML PREMIX 100 ML IV (07:58)
[2022-09-03] MEDS: LACTATED RINGERS 1,000 ML 999 ML IV (08:20)
--- NOTE | 2022-09-03 08:29 | SUR.OPER ---
Supine on Padded OR bed, head on pillow, safety belt at thigh, arms secured on padded arm boards at <90 degrees abduction. Bump under right buttock. Legs uncrossed with pillow under knees, gel pad to heels, tape over blanket to lower legs. Gel pad placed between right thigh and ford tubing.
--- NOTE | 2022-09-03 08:32 | SUR.OPER ---
Viable baby girl delivered at 0817. Placenta delivered. Placenta and cord blood tubes x2 given to L&D RN.
[2022-09-03 09:03] VITALS: BP 104/61; PULSE 56; RESP 14; TEMP 36.5; O2SAT 100
--- NOTE | 2022-09-03 09:06 | PM.OBCS.1 ---
Operative Date/Time/Diagnoses Date of procedure: 09/03/22 Time of procedure: 09:06 Pre-op diagnosis: prior c section X 2 with h/o abruption Post-op diagnosis: same Procedure & Clinicians Procedure: Repeat low-transverse section Same procedure as scheduled: Yes Indications: 2 prior sections Surgeon: Lena Lara Internal Specialist: Gladys Ramsey Anesthesia Type: Spinal Operative Notes Findings: Normal tubes, ovaries, uterus some adhesions between the omentum and the anterior abdominal wall and adhesions of the uterus to the anterior abdominal wall. Viable female infant Closure Type: primary Specimen(s): cord blood Intraoperative meds administered: Duramorph, Ketorolac and Pitocin Applied: Catheter (Palafox) Estimated Blood Loss (mL): 500 Blood products transfused: none Complications: none Baby 1: Gender: Female Presentation: vertex Position: Right Occiput Anterior Placental Delivery Description: Expressed Cord Vessel Description: 3 Vessels score (1 min): 9 score (5 min): 9 weight: 5 lb 10 oz Post-operative Condition: stable Disposition: other ( Center) Aftercare: routine postop
[2022-09-03 09:08] VITALS: BP 109/71; PULSE 68; RESP 18; O2SAT 97
[2022-09-03 09:12] VITALS: BP 104/51; PULSE 63; RESP 16; O2SAT 99
[2022-09-03] MEDS: KETOROLAC 30 MG/ML VIAL IV ×2 (15:58→21:49)
[2022-09-03] MEDS: ACETAMINOPHEN 325 MG TABLET 650 MG PO (20:00)
[2022-09-04] MEDS: ACETAMINOPHEN 325 MG TABLET 650 MG PO (02:00)
[2022-09-04] MEDS: KETOROLAC 30 MG/ML VIAL IV (03:42)
[2022-09-04] MEDS: PRENATAL VIT,CALC/IRON/FOLIC 1 TABLET 1 TAB PO (10:25)
[2022-09-04] MEDS: DOCUSATE 100 MG CAPSULE PO (10:25)
[2022-09-04 10:26] VITALS: TEMP 36.8
[2022-09-04] MEDS: IBUPROFEN 600 MG TABLET PO (10:26)
[2022-09-04] MEDS: valACYclovir 500 MG TABLET PO (10:26)
[2022-09-04 10:49] LABS: Add Manual Diff / Slide Review NO; Basophils Absolute Auto 100 /uL (0-100); Eosinophils Absolute Auto 100 /uL (0-450); Eosinophils Percent Auto 1.1 % (2-4); Hematocrit 33.7 % (36-46); Hemoglobin 11.7 g/dL (12.0-16.0); Lymphocytes Absolute Auto 1000 /uL (1100-4500); Lymphocytes Percent Auto 7.9 % (25-40); Mean Corpuscular HGB Conc 34.7 % (30-36); Mean Corpuscular Hemoglobin 31.2 PG (26-34); Mean Corpuscular Volume 89.9 fL (80-100); Monocytes Absolute Auto 500 /uL (0-900); Monocytes Percent Auto 4.2 % (3-14); Neutrophils Absolute Auto 10400 /uL (1500-7000); Neutrophils Percent Auto 85.8 % (50-75); Platelet Count 191 X10^3/uL (150-400); Red Blood Cell Count 3.75 X10^6/uL (4.0-5.2); Red Cell Distribution Width 12.9 % (11.6-14.8); White Blood Cell Count 12.1 X10^3/uL (4.5-11.0)
--- NOTE | 2022-09-04 11:21 | PM.OBDS.1 ---
Discharge Providers Provider Date of admission: 09/03/22 05:40 Discharge Date: 09/04/22 Primary care physician: Chace Melissa MD Consults: 09/03/22 10:34 Consult to [employer] Routine Comment: Discharge provider: Lena Lara MD Summary Hospital Course Date Patient Seen: 09/04/22 Time Patient Seen: 11:22 Diagnoses: Repeat low-transverse section Hospital Course: Patient was admitted for repeat section for 2 prior sections and history of abruption. A viable female infant was delivered weighing 5 lb 10 oz. patient is without difficulty. She is urinating and ambulating well. She is passing gas. Pain is well controlled. No signs or symptoms of preeclampsia. Bleeding is minimal. Peripartum Data Delivery Method: Section complications: none 1: Gender: Female Disposition of : home Discharge Diagnosis (1) Status post repeat low transverse section: Status: Acute Status at Discharge Cognitive/behavioral status at discharge: oriented Functional status at discharge: independent ambulation Overall status at discharge: patient is progressing back to baseline Time Spent with Patient Time attestation: Total time spent providing and/or coordinating discharge services: Time spent: Less than 30 minutes Objective Labs 09/04/22 10:40 Labs: Laboratory Results - last 24 hr 09/04/22 10:40 WBC 12.1 H D RBC 3.75 L Hgb 11.7 L Hct 33.7 L MCV 89.9 MCH 31.2 MCHC 34.7 RDW 12.9 Plt Count 191 Neut % (Auto) 85.8 H D Lymph % (Auto) 7.9 L D [place] % (Auto) 4.2 Eos % (Auto) 1.1 L Baso % (Auto) 1.0 Neut # (Auto) 83471 H Lymph # (Auto) 1000 L [place] # (Auto) 500 Eos # (Auto) 100 Baso # (Auto) 100 Exam Vital Signs (past 8 hours): Blood pressure 99/56, pulse of 54, temperature 97.9?- 09/04/22 10:26 Temperature 98.2 F Oxygen Delivery Method Room Air Narrative Exam Narrative: Patient's abdomen is soft, nontender. Uterus is firm, U-2, nontender. Dressing is clean, dry, intact. Mild lochia. Extremities without edema and nontender. Discharge Plan Discharge Plan Patient Disposition: Home Discharge orders & Medications Prescriptions: New ibuprofen 600 mg Tablet 600 mg PO Q6H Qty: 20 0RF oxycodone 5 mg Tablet 5 mg PO Q4H PRN (Reason: Pain, Moderate (4-6)) Qty: 10 0RF Continued prenat.vits,miki,wjj-rfwm-fwqsz Tablet 1 tab PO DAILY valacyclovir [Valtrex] 500 mg tablet 500 mg PO DAILY Follow up/Referrals: Lena Lara MD [Physician] - 1 Week (Follow up appt with Dr. Lara on 09/10/2022 @ 1020 for incision check Post [address] Brooke on 10/14/2022 @ 1030 am) Chace Melissa MD [Primary Care Provider] - Diet/Activity/Treatments Diet: Regular Activity: Nothing in vagina for 6 weeks. Skin/Wound/Dressing Care Report to your healthcare provider any signs of infection, such as:: chills, fever and increased pain Dressing: Leave dressing on until 1 week postop appointment Discharge Data Primary Care Provider: Chace Melissa
[2022-09-04 11:33] VITALS: BP 108/60; PULSE 66; RESP 17; TEMP 36.6
== END 2022-09-04 12:40 | disposition home or self-care (01) | DRG 540 ==
PROVIDERS: Specialist; Admitting Provider Obstetrics & Gynecology; PCP Family Medicine; Referring Provider Obstetrics & Gynecology; Visit Provider Obstetrics & Gynecology
PROC: 10D00Z1 Extraction of Products of Conception, Low, Open Approach (ICD-10-PCS; CPT 59514; principal; 2022-09-03 07:45)
DX: O34.211 Maternal care for low transverse scar from previous cesarean delivery (principal); Z3A.37 37 weeks gestation of pregnancy; Z37.0 Single live birth; O98.52 Other viral diseases complicating childbirth; B00.9 Herpesviral infection, unspecified
CPT/HCPCS: 36415; 59050; 59514; 85025; 86850; 86870; 86900; 86901; J0690; J1885; J2274; J2405; J2590; J3010

== ENCOUNTER → 2023-04-22 15:21 | Outpatient (CLI) | payer OTHER, MEDICAID, SELFPAY ==
--- NOTE | 2023-04-22 | DI.CT.S_ITS ---
PROCEDURE: CT KIDNEY URETER BLADDER (KUB) INDICATIONS: Calculus of kidney TECHNIQUE: Axial sections were acquired from the lung bases to the pubic symphysis. Coronal and sagittal reformats were performed. For radiation dose reduction, the following was used: automated exposure control, adjustment of mA and/or kV according to patient size. COMPARISON: None. FINDINGS: Image quality: Excellent. Lung bases: Tree-in-bud opacities in the left greater than right lower lobes with some associated consolidation. Heart: No significant findings. URINARY: Right Kidney: There is a 2 millimeter nonobstructing stone within the right kidney. No hydronephrosis. Right Ureter: No hydroureter. Left Kidney: Several stones within the left kidney measuring 3 millimeters or less. No hydronephrosis. Left Ureter: No hydroureter. Bladder: Normal wall thickness. No stones. ABDOMEN: Liver: Hypodensities within the right hepatic lobe which measure higher than water attenuation measuring 1.8 centimeters and 1.9 centimeters respectively (2/22). Gallbladder: Contracted and not well visualized. No calcified stones are seen. Biliary ducts: Unremarkable. Pancreas: Unremarkable. Spleen: Unremarkable. Adrenal Glands: Unremarkable. Stomach and Bowel: Stomach, small bowel loops, and colon are unremarkable. Peritoneum: No abnormal intraperitoneal fluid. No free air. Ventral Wall: No hernia. Abdominal Nodes: No enlarged retroperitoneal or mesenteric lymph nodes. Vessels: Aorta and inferior vena cava are normal in size. PELVIS: Pelvic Organs: Unremarkable. Pelvic Nodes: Unremarkable. Miscellaneous: No inguinal hernias are seen. Bones: Unremarkable. IMPRESSION: 1. Bilateral nonobstructing renal stones measuring 3 millimeters or less. No hydronephrosis. 2. Hypodensities within the right hepatic lobe which measure higher than water attenuation. These are indeterminate and recommend further evaluation with ultrasound or liver protocol CT or MRI. 3. Tree-in-bud and consolidative opacities within the left greater than right lung bases, concerning for infection. Dictated by: Jayjay Deal M.D. on 04/22/2023 at 16:25 Approved by: Jayjay Deal M.D. on 04/22/2023 at 16:30
== END ==
PROVIDERS: PCP Family Medicine; Referring Provider Family Medicine; Visit Provider Family Medicine
DX: N20.0 Calculus of kidney (principal)
CPT/HCPCS: 74176

== ENCOUNTER → 2023-04-28 11:24 | Outpatient (CLI) | payer OTHER, MEDICAID, SELFPAY ==
--- NOTE | 2023-04-28 | DI.RAD.S_ITS ---
PROCEDURE: XR CHEST 2V INDICATIONS: chronic cough TECHNIQUE: 2 views of the chest were acquired. COMPARISON: None. FINDINGS: Surgical changes and devices: None. Lungs and pleura: Lungs are clear. No pleural effusions or pneumothorax. Mediastinum: Mediastinal contours are normal. Heart size is normal. Bones and chest wall: No suspicious bony abnormalities. Soft tissues appear unremarkable. IMPRESSION: Normal two view chest x-ray Approved by: Ramo Byrd M.D. on 04/28/2023 at 18:52
== END ==
PROVIDERS: PCP Family Medicine; Referring Provider Family Medicine; Visit Provider Family Medicine
DX: R05.3 Chronic cough (principal)
CPT/HCPCS: 71046

== ENCOUNTER → 2023-04-29 16:42 | Outpatient (CLI) | payer OTHER, MEDICAID, SELFPAY ==
--- NOTE | 2023-04-29 | DI.US.S_ITS ---
PROCEDURE: US ABDOMEN LIMITED INDICATIONS: LIVER CYST TECHNIQUE: Real-time focused scanning was performed of the abdomen, with image documentation. COMPARISON: [facility], CT, CT KIDNEY URETER BLADDER (KUB), 04/22/2023, 15:26. FINDINGS: No liver cysts are seen. Two hyperechoic nonvascular structures can be seen in the right lobe measuring up to 2.4 cm and up to 1.7 cm, respectively. No shadowing or abnormal vascularity can be seen No findings of gallstones or sludge are seen. The gallbladder wall is not thickened, measuring 3 mm or less. No specific pericholecystic fluid is seen. The sonographic [place] sign is negative. There is no biliary dilatation, the common bile duct measures 2 mm. No significant pancreatic abnormality is seen on these images. IMPRESSION: No liver cysts are seen. Apparent liver hemangiomas can be seen within the right lobe of the liver. Dictated by: Trevon Collado M.D. on 04/30/2023 at 16:34 Approved by: Trevon Collado M.D. on 04/30/2023 at 16:35
== END ==
PROVIDERS: PCP Family Medicine; Referring Provider Family Medicine; Visit Provider Family Medicine
DX: K76.89 Other specified diseases of liver (principal)
CPT/HCPCS: 76705

== ENCOUNTER → 2023-11-16 11:23 | Outpatient (CLI) | payer OTHER, MEDICAID, SELFPAY ==
--- NOTE | 2023-11-16 11:26 | DI.RAD.S_ITS ---
PROCEDURE: XR SACRUM COCCYX MIN 2V INDICATIONS: BACK PAIN TECHNIQUE: 3 views of the sacrum and coccyx acquired. COMPARISON: None. FINDINGS: Bones: No fractures or dislocations. No suspicious bony lesions. Soft tissues: Visualized bowel gas pattern is normal. No suspicious soft tissue densities. IMPRESSION: No visualized acute fracture or dislocation. However, if clinical concern and/or pain persist, short interval imaging followup in 7-10 days is recommended, as occult injury cannot be definitively excluded. Dictated by: Tammy Sorto M.D. on 11/16/2023 at 13:36 Approved by: Tammy Sorto M.D. on 11/16/2023 at 13:36
== END ==
PROVIDERS: PCP Family Medicine; Referring Provider Family Medicine; Visit Provider Family Medicine
DX: M53.3 Sacrococcygeal disorders, not elsewhere classified (principal)
CPT/HCPCS: 72220